=== PATIENT | male | born 2005 | race Caucasian/White ===

== ENCOUNTER 2024-09-25 03:41 | Emergency (ER) | payer OTHER ==
[~2024-09-25] VITALS: Ht 177.8 cm; Wt 77.1 kg
== END 2024-09-25 06:00 | disposition home or self-care (01) ==
LOC: ED 03:41
DX: M54.50 Low back pain, unspecified (principal); M54.6 Pain in thoracic spine; F10.129 Alcohol abuse with intoxication, unspecified; V87.7XXA Person injured in collision between other specified motor vehicles (traffic), initial encounter; Y93.89 Activity, other specified; Y92.410 Unspecified street and highway as the place of occurrence of the external cause; Y99.8 Other external cause status; Y90.9 Presence of alcohol in blood, level not specified